=== PATIENT | male | born 1965 | race Caucasian/White ===

== ENCOUNTER → 2021-09-20 14:23 | Outpatient (BNVA) | payer OTHER, SELFPAY | PROVIDERS: PCP Internal Medicine; Referring Provider Internal Medicine; Visit Provider Internal Medicine Cardiovascular Disease | DX: I25.10 Atherosclerotic heart disease of native coronary artery without angina pectoris (principal); R07.89 Other chest pain; Z95.5 Presence of coronary angioplasty implant and graft; Z79.82 Long term (current) use of aspirin; Z79.899 Other long term (current) drug therapy | CPT/HCPCS: 93005 ==

== ENCOUNTER → 2021-09-26 07:14 | Outpatient (REF) | payer OTHER, SELFPAY ==
--- NOTE | ~2021-09-26 | NM_ITS ---
EXERCISE MYOCARDIAL PERFUSION STUDY INDICATION: Chest pain, coronary artery disease, assess for ischemia TECHNIQUE: The patient was brought in for an exercise perfusion study on 09/26/2021. Patient performed exercise as per Tod protocol and was injected 35 mCi of sestamibi once target heart rate was achieved. Images were obtained using the SPECT gamma camera interlaced with the gating device. Images were obtained in supine position. Resting perfusion study was performed on 09/27/2021. Patient was administered 35 mCi of sestamibi intravenously at rest. Images were then obtained in supine position. Images were processed with the software and compared side to side in short axis, horizontal long axis and vertical long axis views. FINDINGS: Raw images were reviewed. The stress perfusion study showed no significant perfusion abnormality. Both uncorrected as well as CT attenuation corrected images were reviewed. The gated study shows normal LV systolic function with calculated LVEF of 66%. LV cavity is normal in size. The gated study shows normal wall thickening and contraction of segments. Resting study shows no significant perfusion abnormality. Gating at rest reveals normal wall motion with ejection fraction at 64%. The findings are consistent with no reversible or fixed perfusion abnormality. [place] cardiolite stress test IMPRESSION: 1. Myocardial perfusion imaging study shows normal myocardial perfusion. No evidence of any ischemia or infarction. 2. Gated LVEF is 66% during stress and 64% during rest. 3. Transient ischemic dilatation not present. EKG component of the test reported separately.
--- NOTE | 2021-09-26 07:28 | CA_ITS ---
Acquisition Time: 2021-09-26 08:30:00 Total Exercise Time: 00:11:15 Test Indications: CP, SOB Medications: SEE CHART Protocol: MANUELITO Max HR: 146 BPM 89% of Pred: 163 BPM Max BP: 204/090 mmHG Max Work Load: 13.4 METS Exercise stress test with exercise 11 min 15 sec of Manuelito protocol, with report of 3/10 left chest pressure, with isolated PVCs and two ventricular cuplets, with BP 138/98 at baseline and up to 204/90 with exercise, with EKG abnormalities at baseline: downlsoping ST with T inversion lead III, aVF, V5-V6, without signficant EKG changes during exercise. Chest discomfort quickly resolved in recovery. BP improved to 150/88. Nuclear images pending. Test reviewed with Dr Jimenez Referred By: Anirudh Thornton Overread By: AMALIA ROMANO
--- NOTE | 2021-09-26 07:28 | CA_ITS ---
Transthoracic Echocardiogram Patient (Last, First, Middle): Ronan Amador M Gender: Male Date of : 1965 Age: 55 Procedure Date: 09/26/2021 Procedure Type: Transthoracic Echocardiogram Location: OP Height: 182.88 cm Weight: 102.06 kg BSA: 2.24 m2 Heart Rate: bpm BP: 148 / 84 mmHg Varnish Inspector: HORACIO Referring MD: Anirudh Thornton MD Compensation Expert: Anirudh Thornton MD Symptoms: I25.10 - Atherosclerotic heart disease of [place] coronary... Study Quality: Fair ECG Rhythm: Sinus Conclusions: - 1. Normal LV systolic function with underlying regional wall motion abnormality with impaired relaxation filling pattern 2. Mildly dilated left atrium 3. Normal cardiac valvular Doppler 4. Normal calculated RV systolic pressure 5. No gross pericardial effusion Findings Left Ventricle Normal left ventricular size and systolic function. There is mildly increased left ventricular wall thickness. The visually estimated ejection fraction is between 55-60%. Spectral Doppler is indicative of an impaired relaxation filling pattern. E/E prime ratio is between 8 and 15 consistent with indeterminate filling pressures. Wall Motion Rest Echo Findings The basal inferior and basal inferoseptal segments are hypokinetic. All other scored wall segments showed normal motion. Right Ventricle Normal right ventricular cavity size and systolic function. Atria The left atrium is mildly dilated. There is no evidence of interatrial shunt. The right atrium is normal in size. Aortic Valve There is mild calcification of the aortic valve. There is mild thickening of the aortic valve. There is no aortic valve stenosis. There is no aortic valve regurgitation. Mitral Valve There is mild anterior and posterior mitral leaflet thickening. There is trace mitral valve regurgitation. There is no mitral valve stenosis. Pulmonic Valve The pulmonic valve was not well visualized. Tricuspid Valve Likely normal tricuspid valve structure and function. There is trace tricuspid valve regurgitation. The right ventricular systolic pressure is normal. There is no evidence of pulmonary hypertension. Great Vessels All visible segments of the aorta are normal in size. The pulmonary artery was not well visualized. Venous The inferior vena cava is normal in size and collapses greater than 50% with inspiration. Pericardium/Pleural There is no evidence of pericardial effusion. Prior Study Comparison No prior study available for comparison. Measurements 2D Linear Measurements IVSd: 1.33 0.6-0.9/0.6-1.0 cm LVIDd: 4.35 3.9-5.3/4.2-5.9 cm LVIDd Index: 1.94 2.4-3.2/2.2-3.1 cm/m2 LVIDs: 2.69 2.0-3.6 cm LVPWd: 1.31 0.7-1.1 cm Ao Root: 3.40 2.1-3.5 cm LA Diam: 3.90 2.7-3.8/3.0-4.0 cm LAIDs Index: 1.74 1.5-2.3 cm/m2 LV Mass: 269.59 67-162/88-224 g LV Mass Index: 120.35 43-95/49-115 g/m2 LVOT Diam: 2.00 3.0+(-)1.3 cm 2D Systolic Function EF 4C: 60.80 >55% EF 2C: 60.10 >55% EF BiP: 59.70 >55% Mitral Valve MV Pk E: 0.66 MV PK A: 0.88 MV Decel Time: 237.00 E/A: 0.70 E'Lateral: 6.96 E'Medial: 5.66 E/E' Med: 11.60 E/E' Lat: 9.40 PHT: 69.00 MVA PHT: 3.19 Decel [place]: 2.77 Aortic Valve AoV Pk Lul: 1.62 AoV Mn Lul: 1.09 AoV VTI: 0.31 AoV Pk Grad: 10.00 Aov Mn Grad: 5.00 THIAGO Cont.VTI: 2.51 LVOT LVOT Pk Lul: 1.29 LVOT Mn Lul: 0.79 LVOT VTI: 0.25 LVOT Pk Grad: 7.00 LVOT Mn Grad: 3.00 LVOT Diam: 2.00 LVOT Area: 3.14 Diastolic Function MV Pk E: 0.66 MV Pk A: 0.88 E/A: 0.70 E'Medial: 5.66 E/E' Med: 11.60 E' Laterial: 6.96 E/E' Lat: 9.40 Right Ventricle TAPSE (mm): 19.30 TVS' Lul: 11.20 Tricuspid Valve TR Pk Lul: 1.25 TR Pk Grad: 6.00 RA Press: 3.00 RVSP: 9.00 Great Vessels Aorta Ao Root-2D: 3.40 2.0-3.7 cm Ao Asc: 3.60 2.1-3.4 cm Ao Arch: 3.10 Updated in Other Vendor System with Status of Final Anirudh Thornton MD electronically signed on 09/26/2021 1:34:53 PM with status of Final
== END ==
LOC: HO.CARD 07:14
PROVIDERS: PCP Internal Medicine; Visit Provider Internal Medicine Cardiovascular Disease
DX: R07.89 Other chest pain (principal); I25.10 Atherosclerotic heart disease of native coronary artery without angina pectoris
CPT/HCPCS: 78452; 93017; 93306; A9500; J0280; J2785

== ENCOUNTER 2023-09-01 14:43 | Outpatient (AMB) | payer OTHER, SELFPAY ==
--- NOTE | 2023-09-01 15:06 | A.OFFVIS_ITS ---
Intake Vital Signs 09/01/23 15:07 Height 6 ft Weight 235 lb 14.314 oz BMI 32.0 BP 120/70 Blood Pressure Location Lt brachial Position Sitting Pulse 67 Intake Visit Reasons: F/u Chest pain Intake Note: Follow-up with ekg still having chest pain nothing changed Cylinder Grinder Required: No Allergies [place]-HUS-XnQ Reductase Inhibitor Allergy (Verified 09/20/21 14:55) Muscle Pain Medication List - Last Reconciled 09/01/23 by Anirudh Thornton MD aspirin (Adult Low Dose Aspirin) 81 mg PO DAILY HPI HPI Comments History of Present Illness Details Ronan comes for follow-up. He said he continues to have precordial chest pain and left arm discomfort. He said this is with no clear exertional activity. 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 He is very frustrated overall. He said he has some chest discomfort today. EKG with chest discomfort is within normal limits with no evidence of ischemic changes. He says ever since stenting he has gone downhill. He says he has had reduced functional capacity with increasing fatigue and tiredness. He is lost weight. He also has had memory loss. 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 We have prescribed in [facility], however he does not recall ever being told about it. He is also currently off atenolol only currently taking aspirin therapy. His workup 2 years ago was within normal limits. [facility] Medical History Statin intolerance Hyperlipidemia CAD (coronary artery disease) Surgical History Stented coronary artery Family History Father CAD (coronary artery disease) Mother S/P AVR (aortic valve replacement) Social History Patient Tobacco Use Status: Never used Tobacco Review of Systems Const Denies chills, Denies fatigue, Denies fever(s), Denies frequent falls, Denies weakness, Denies weight gain and Denies weight loss ENT Denies dizziness Card Denies chest pain, Denies leg edema, Denies lightheadedness, Denies palpitations, Denies dyspnea, Denies dyspnea on exertion, Denies orthopnea and Denies other (loss of consciousness) Resp Denies cough, Denies dyspnea and Denies dyspnea on exertion GI Denies hematochezia and Denies change in stool character Musc Denies abnormal gait, Denies muscle weakness, Denies numbness, Denies radiating pain into limb and Denies tingling Neuro Denies Abnormal speech present, Denies abnormal gait, Denies dizziness, Denies frequent falls, Denies numbness, Denies tingling and Denies weakness Endo Denies fatigue and Denies palpitations Physical Exam Vital Signs: Last Vital Signs Pulse 67 09/01/23 15:07 BP 120/70 09/01/23 15:07 BMI result Body Mass Index 32.0 Const General: cooperative, comfortable, no acute distress, alert and awake Nutritional Appearance: obese Orientation/consciousness: patient oriented x3 Limitations: no limitations HEENT Head: Yes normocephalic and Yes atraumatic Neck Neck: Yes trachea midline, Yes supple and Yes no JVD Carotids: no bruits Resp Effort & Inspection: normal respiratory effort Auscultation: clear to auscultation bilaterally Cardio Jugular venous distension: no JVD Palpation: normal PMI Rate: regular rate Rhythm: regular rhythm Heart sounds: S1 normal heart sound present, S2 normal heart sound present, no click, no gallops, no murmurs and no rubs GI Auscultation: normal bowel sounds Skin General skin exam: no rashes or lesions noted Neuro General: patient oriented x3 and no focal motor deficits Speech: No Abnormal speech present Extrem General: Yes no clubbing, cyanosis or edema Office Procedures EKG Details: EKG shows normal sinus rhythm normal EKG 41662-[id number], Complete Assessment & Plan Assessment & Plan (1) Non-cardiac chest pain: Code(s): R07.89 - Other chest pain Plan: Patient continues to have intermittent episodes of chest discomfort which has no clear exertional pattern. Symptoms can sometimes be related to stress but also has symptoms today and with completely normal EKG. Workup with myocardial perfusion imaging within last 2 years which was within normal limits. I feel that his chest pain is not cardiac in origin and does not present myocardial ischemia. Most likely musculoskeletal chest pain or anxiety related chest pain. If the pattern of chest pain changes and happens consistently with exertion may consider cardiac catheterization at that point in time. (2) CAD (coronary artery disease): Code(s): I25.10 - Atherosclerotic heart disease of [place] coronary artery without angina pectoris Plan: Coronary artery disease with stenting of the OM2 branch with no improvement in his symptoms overall. Possible that his symptoms in the past were not related to myocardial ischemia. He is currently on aspirin therapy. 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 Discussed with him about al ternative such as PCSK9 inhibitor therapy which is the injectable therapy. He said he can not use needles. However he think about it once I said that it is once every 2 weeks. Importance of lipid modification to although the course of atherosclerosis was discussed with him in details. He showed understanding. However remains focused and frustrated with his other symptoms of fatigue and tiredness as well as memory loss. Advised to follow-up with your office for further management of these symptoms. Will follow up in the clinic in 1 year's time, sooner p.r.n.. Thank you for allowing me to partake in his care Coding Level of Care Code Est Pt Level 4 (24608) Diagnoses Non-cardiac chest pain R07.89 CAD (coronary artery disease) I25.10 CPT Codes EKG - CPT: 21825-[id number], Complete ([id number])
[2023-09-01 15:07] VITALS: BP 120/70; PULSE 67; BMI 32.0
== END 2023-09-01 15:50 | disposition home or self-care (01) ==
PROVIDERS: PCP Nurse Practitioner Family; Visit Provider Internal Medicine Cardiovascular Disease
DX: R07.89 Other chest pain (principal); I25.10 Atherosclerotic heart disease of native coronary artery without angina pectoris
CPT/HCPCS: 93010; 99214

== ENCOUNTER → 2023-09-01 14:43 | Outpatient (BNVA) | payer OTHER, SELFPAY | PROVIDERS: PCP Internal Medicine; Visit Provider Internal Medicine Cardiovascular Disease | DX: R07.89 Other chest pain (principal); I25.10 Atherosclerotic heart disease of native coronary artery without angina pectoris | CPT/HCPCS: 93005 ==

== ENCOUNTER → 2024-09-02 08:34 | Outpatient (BNVA) | payer OTHER, SELFPAY | PROVIDERS: PCP Nurse Practitioner Family; Visit Provider Internal Medicine Cardiovascular Disease | DX: R07.9 Chest pain, unspecified (principal); I25.10 Atherosclerotic heart disease of native coronary artery without angina pectoris; E78.5 Hyperlipidemia, unspecified | CPT/HCPCS: 93005 ==

== ENCOUNTER 2024-09-03 08:13 | Outpatient (REF) | payer OTHER, SELFPAY ==
[2024-09-03 09:00] LABS: Hematocrit 45.2 % (42.0-52.0); Hemoglobin 14.6 g/dl (14.0-18.0); Mean Corpuscular HGB Conc 32.3 g/dl (31.0-36.0); Mean Corpuscular Hemoglobin 29.6 pg (27.0-33.0); Mean Corpuscular Volume 91.7 fL (80.0-98.0); Mean Platelet Volume 10.3 fL (9.4-12.4); Platelet Count 194 X10*3/uL (160-400); Red Blood Count 4.93 X10*6/uL (4.60-5.80); Red Cell Distribution Width 13.4 % (11.0-16.0); White Blood Count 5.4 X10*3/uL (4.8-10.8)
[2024-09-03 09:28] LABS: Alanine Aminotransferase 27 U/L (0-40); Albumin Level 4.1 g/dL (3.5-5.0); Alkaline Phosphatase 51 U/L (39-117); Anion Gap 11 (12-20); Aspartate Amino Transferase 30 U/L (5-37); Bilirubin Direct 0.2 mg/dL (0.0-0.5); Bilirubin Total 0.5 mg/dL (0.0-1.0); Blood Urea Nitrogen 20 mg/dL (9-16); Calcium 9.8 mg/dL (8.4-10.2); Carbon Dioxide 28 mmol/L (22-29); Chloride 109 mmol/L (96-108); Cholesterol 191 mg/dL (<200); Estimated Glomerular Filt Rate > 60; Glucose Random 96 mg/dL (60-115); HDL Cholesterol 46 mg/dL (>40); LDL Cholesterol Calculated 133 mg/dL (<100); Potassium 4.5 mmol/L (3.3-5.1); Sodium 143 mmol/L (135-145); Total Protein 7.2 g/dL (6.5-8.0); Triglycerides 61 mg/dL (<150)
[2024-09-03 09:45] LABS: TSH reflex Free T4 1.23 uIU/mL (0.32-4.0)
[2024-09-06 06:48] LABS: CRP High Sensitivity 0.8 mg/L
[2024-09-09 13:28] LABS: Lipoprotein A 11 nmol/L (<75)
[2024-09-10 04:48] LABS: Apolipoprotein B 98 mg/dL (<90)
== END 2024-09-03 08:14 | disposition home or self-care (01) ==
LOC: HO.LAB 08:13
PROVIDERS: PCP Nurse Practitioner Family; Visit Provider Internal Medicine Cardiovascular Disease
DX: I25.10 Atherosclerotic heart disease of native coronary artery without angina pectoris (principal); E78.5 Hyperlipidemia, unspecified
CPT/HCPCS: 36415; 80048; 80061; 80076; 82172; 83695; 84443; 85027; 86141

== ENCOUNTER → 2024-09-21 07:54 | Outpatient (REF) | payer OTHER, SELFPAY ==
--- NOTE | 2024-09-21 07:56 | CA_ITS ---
Transthoracic Echocardiogram Patient (Last, First, Middle): Ronan Amador M Gender: Male Date of : 1965 Age: 58 Procedure Date: 09/21/2024 Procedure Type: Transthoracic Echocardiogram Location: OP Height: 182. cm Weight: 98.43 kg BSA: 2.20 m2 Heart Rate: 59 bpm BP: 165 / 85 mmHg Paper Rewinder: WESLEY Referring MD: Anirudh Thornton MD Symptoms: R07.9 - Chest pain, unspecified Study Quality: Fair ECG Rhythm: Sinus Conclusions: - The left ventricular systolic function is normal. The calculated ejection fraction is 65% by biplane method. - There is moderate septal asymmetric hypertrophy. - There is moderate calcification of the aortic valve. Findings Left Ventricle Normal left ventricular cavity size. The left ventricular systolic function is normal. The calculated ejection fraction is 65% by biplane method. There is no evidence of regional wall motion abnormalities. Diastolic function is normal for age. There is moderate septal asymmetric hypertrophy. Right Ventricle Mildly increased right ventricular cavity size. There is normal right ventricular systolic function. Atria Both atria are normal in size. Aortic Valve There is moderate calcification of the aortic valve. There is no aortic valve stenosis. There is no aortic valve regurgitation. Mitral Valve The mitral valve appears normal. There is no mitral valve regurgitation. There is no mitral valve stenosis. Pulmonic Valve The pulmonic valve is likely normal. Tricuspid Valve There is trace tricuspid valve regurgitation. There is no evidence of pulmonary hypertension. Great Vessels The asc aorta and aortic arch are normal in size. Venous The inferior vena cava was not well visualized. The inferior vena cava is normal in size. Pericardium/Pleural There is no evidence of pericardial effusion. Prior Study Comparison Changes noted compared to prior study dated: 09/26/2021. No clear evidence of wall motion abnormality. Measurements 2D Linear Measurements IVSd: 1.27 0.6-0.9/0.6-1.0 cm LVIDd: 4.39 3.9-5.3/4.2-5.9 cm LVIDd Index: 2.00 2.4-3.2/2.2-3.1 cm/m2 LVIDs: 2.57 2.0-3.6 cm LVPWd: 0.95 0.7-1.1 cm LA Diam: 4.40 2.7-3.8/3.0-4.0 cm LAIDs Index: 2.00 1.5-2.3 cm/m2 LV Mass: 212.23 67-162/88-224 g LV Mass Index: 96.47 43-95/49-115 g/m2 LVOT Diam: 2.30 3.0+(-)1.3 cm 2D Systolic Function EF 4C: 66.40 >55% EF 2C: 59.80 >55% EF BiP: 65.20 >55% Mitral Valve MV Pk E: 0.69 MV PK A: 0.76 MV Decel Time: 335.00 E/A: 0.90 E'Lateral: 7.51 E'Medial: 4.79 E/E' Med: 14.40 E/E' Lat: 9.20 PHT: 98.00 MVA PHT: 2.24 Decel [place]: 2.06 Aortic Valve AoV Pk Lul: 1.85 AoV Mn Lul: 1.34 AoV VTI: 0.41 AoV Pk Grad: 14.00 Aov Mn Grad: 8.00 THIAGO Cont.VTI: 2.65 LVOT LVOT Pk Lul: 1.20 LVOT Mn Lul: 0.80 LVOT VTI: 0.26 LVOT Pk Grad: 6.00 LVOT Mn Grad: 3.00 LVOT Diam: 2.30 LVOT Area: 4.15 Diastolic Function MV Pk E: 0.69 MV Pk A: 0.76 E/A: 0.90 E'Medial: 4.79 E/E' Med: 14.40 E' Laterial: 7.51 E/E' Lat: 9.20 Right Ventricle TAPSE (mm): 22.80 TVS' Lul: 12.10 Great Vessels Aorta Sinus of Valsalva: 3.50 2.0-3.5 cm Ao Asc: 3.60 2.1-3.4 cm Ao Arch: 3.20 Pulmonary Valve PV Pk Lul: 1.38 Peak PV Grad: 8.00 Updated in Other Vendor System with Status of Final Lloyd Tineo MD electronically signed on 09/21/2024 11:19:58 AM with status of Final
== END ==
LOC: HO.CARD 07:54
PROVIDERS: PCP Nurse Practitioner Family; Visit Provider Internal Medicine Cardiovascular Disease
DX: R07.9 Chest pain, unspecified (principal)
CPT/HCPCS: 93306

== ENCOUNTER → 2024-09-21 07:56 | Outpatient (BNV) | payer OTHER, SELFPAY | PROVIDERS: PCP Nurse Practitioner Family; Visit Provider Internal Medicine | DX: I35.8 Other nonrheumatic aortic valve disorders (principal); I42.2 Other hypertrophic cardiomyopathy | CPT/HCPCS: 93306 ==

== ENCOUNTER → 2024-10-20 09:48 | Outpatient (REF) | payer OTHER, SELFPAY ==
--- NOTE | ~2024-10-20 | NM_ITS ---
EXERCISE MYOCARDIAL PERFUSION STUDY INDICATION: Chest pain to evaluate for myocardial ischemia TECHNIQUE: The patient was brought in for an exercise perfusion study on 10/20/2024. Patient performed exercise as per Tod protocol and was injected 30 mCi of sestamibi once target heart rate was achieved. Images were obtained using the SPECT gamma camera interlaced with the gating device. Images were obtained in supine position. Resting perfusion study was performed on 10/21/2024. Patient was administered 30 mCi of sestamibi intravenously at rest. Images were then obtained in supine position. Images obtained without without CT attenuation. Total DLP 88 mGy-cm. Images were processed with the software and compared side to side in short axis, horizontal long axis and vertical long axis views. FINDINGS: Raw images were reviewed The stress perfusion study showed nonattenuated images show mildly reduced uptake in the basal and mid inferior wall of the LV myocardium. There is also mildly reduced uptake in the basal inferolateral wall of the LV myocardium. Attenuated corrected images show mildly reduced uptake in a small area of focal apical inferior as well as the apical inferolateral wall of the LV myocardium.. The gated study shows normal LV systolic function with calculated LVEF of 72%. LV cavity is normal in size. The gated study shows normal systolic wall thickening and contraction of segments. Resting study shows nonattenuated images show mildly reduced uptake in the basal inferior, basal inferolateral and mid inferior wall of the LV myocardium, unchanged from stress perfusion study on attenuated corrected images show improved uptake in the focal area of inferolateral apical as well as apical inferolateral wall of the LV myocardium.. Gating at rest reveals normal systolic wall motion with ejection fraction at 66%. The findings are consistent with reversible defect in the small area of mild intensity focal inferoapical and apical inferolateral wall ischemia. NM/NM cardiolite stress test IMPRESSION: 1. Myocardial perfusion imaging study shows small area of mild intensity inferoapical and apical inferolateral wall ischemia. 2. Gated LVEF is 72%. 3. Transient ischemic dilatation not present. EKG revealed negative for ischemia. Electronically signed by: Anirudh Thornton MD 10/21/2024 04:02 PM EDT
--- NOTE | 2024-10-20 09:50 | CA_ITS ---
Acquisition Time: 2024-10-20 10:01:07 Total Exercise Time: 00:10:35 Test Indications: CP, ABN EKG Medications: SEE H&P Protocol: TOD Max HR: 134 BPM 83% of Pred: 160 BPM Max BP: 204/88 mmHG Max Work Load: 12.7 METS Exercise Stress Test with exercise 10 mins 35 secs of Tod Protocol, achieving 84% MPHR, with reports of 3/10 left sided sharp chest pain upto the shoulder, with SOB, with isolated PVCs, with normotesnive response- baseline BP 142/90 that janay up to 204/88. Without EKG changes meeting criteria for ischemia. CP resolved quickly in recovery and breathing returned to baseline. Nuclear images pending. Test reviewed with Dr. Thornton. Referred By: Anirudh Thornton Electronically Signed By: Michael Palacios
== END ==
LOC: HO.CARD 09:48
PROVIDERS: PCP Nurse Practitioner Family; Visit Provider Internal Medicine Cardiovascular Disease
DX: R07.9 Chest pain, unspecified (principal)
CPT/HCPCS: 78452; 93017; A9500; J0280; J2785

== ENCOUNTER → 2024-10-20 09:50 | Outpatient (BNV) | payer OTHER, SELFPAY | PROVIDERS: PCP Nurse Practitioner Family | DX: R07.2 Precordial pain (principal); R06.02 Shortness of breath; I49.3 Ventricular premature depolarization | CPT/HCPCS: 78452; 93016; 93018 ==

== ENCOUNTER 2025-07-19 13:42 | Outpatient (AMB) | payer OTHER, SELFPAY ==
[2025-07-19 13:46] VITALS: BP 128/82; PULSE 76; BMI 29.8
--- NOTE | 2025-07-19 13:46 | A.OFFVIS_ITS ---
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 He has a history of coronary artery disease with stenting of the OM2 branch in 2017 and has experienced intermittent episodes of chest pain since the procedure, which has become more frequent and sharper recently. The pain is now occurring almost daily, is located on the left side, and at times moves from the chest to the hand and left neck, and can be triggered by stress. Associated symptoms include worsening shortness of breath with exertion, such as climbing stairs, and a new onset of balance issues, where he feels like he is falling sideways. He also reports significant fatigue. Prior cardiac testing includes an exercise stress test on 10/20/2024, which show ed no EKG changes but reproduced his sharp left chest pain, with nuclear imaging revealing a small area of mild inferior apical and apical inferolateral ischemia. Following that test he was to start on metoprolol which he did not do. An echocardiogram from 09/21/2024 showed an ejection fraction of 65%, moderate septal asymmetric hypertrophy, and moderate aortic valve calcification. His medical history is notable for hyperlipidemia with statin intolerance due to muscle damage, and he has refused injectable cholesterol medications. 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 [facility] Medical History (Updated 07/19/25 @ 16:59 by LIDIA Nielsen) Statin intolerance Hyperlipidemia CAD (coronary artery disease) Surgical History Stented coronary artery Family History Father CAD (coronary artery disease) Mother S/P AVR (aortic valve replacement) Social History Patient Tobacco Use Status: Never used Tobacco Review of Systems Const All systems reviewed & are unremarkable except as noted in HPI and below Reports fatigue ENT Denies dizziness Card Reports chest pain, Reports chest pain at rest, Reports chest pain with activity, Denies rapid heart rate, Denies pedal edema, Denies edema, Denies leg edema, Denies lightheadedness, Denies palpitations, Denies dyspnea and Reports dyspnea on exertion Resp Denies cough, Denies dyspnea and Reports dyspnea on exertion GI Denies hematochezia and Denies change in stool character Musc Denies abnormal gait, Denies limited range of motion, Denies muscle cramps, Denies muscle weakness, Denies numbness, Denies radiating pain into limb, Denies stiffness and Denies tingling Neuro Denies abnormal gait, Denies dizziness, Denies numbness and Denies tingling Endo Reports fatigue and Denies palpitations Physical Exam Vital Signs: Last Vital Signs Pulse 76 07/19/25 13:46 BP 128/82 07/19/25 13:46 BMI result Body Mass Index 29.8 Const General: cooperative, healthy appearing, comfortable and no acute distress Orientation/consciousness: patient oriented x3 Neck Neck: Yes normal visual inspection Resp Effort & Inspection: normal respiratory effort Auscultation: clear to auscultation bilaterally, no crackles, no rales, no rhonchi and no wheezes Cardio Rate: regular rate Rhythm: regular rhythm Heart sounds: S1 normal heart sound present, S2 normal heart sound present, no gallops, no murmurs and no rubs Neuro General: patient oriented x3 Extrem General: Yes normal to inspection and No no pedal edema Psych Appearance: grossly normal Mental Status: mental status grossly normal Speech and movement: Normal speech and movement present Office Procedures EKG Details: Today, read by me, sinus rhythm, no acute ST or T-wave abnormalities, rate 76, QTC 418 milliseconds [id number], Complete Assessment & Plan Assessment & Plan (1) Chest pain: Code(s): R07.9 - Chest pain, unspecified Category: Medical Plan: Reports of chest discomfort with typical and atypical features. His symptom has been occurring for years but recent increase in frequency, severity and now with shortness of breath on exertion. Nuclear stress test done last spring with small area of mild intensity inferior apical and apical inferior lateral ischemia. He was instructed to start on metoprolol following that result and he said he never picked it up from the pharmacy. EKG today showing normal sinus rhythm, no ischemic findings, rate 76. Discussed coronary artery disease and the need for further evaluation with cardiac catheterization. He is reluctant at this time. We agreed on having him start the metoprolol XL 25 mg daily to see if that improves his symptoms. I will call him in 2 weeks for re- evaluation. Signs and symptoms of angina reviewed. Cardiology office visit in 3 months, sooner if needed. (2) CAD (coronary artery disease): Code(s): I25.10 - Atherosclerotic heart disease of [place] coronary artery without angina pectoris Category: Medical Plan: History of CAD with stent in the OM2 branch 2017. Reports of chest discomfort as described above. May need repeat catheterization in the near future. (3) Stented coronary artery: Comment: OM 2 stenting, June 2017 for ongoing angina with a drug-eluting stent Code(s): Z95.5 - Presence of coronary angioplasty implant and graft Category: Surgical Plan: As above (4) Hyperlipidemia: Code(s): E78.5 - Hyperlipidemia, unspecified Category: Medical Plan: [place] LDL goal less than 70. Uncontrolled. Labs 09/03/2024 showed LDL 133. Intolerant to statins. Declines PCSK9 inhibitor. Not interested in Zetia. Benefits a weight loss and diet control reviewed (5) Statin intolerance: Comment: Multiple statins including atorvastatin, pravastatin and rosuvastatin Code(s): Z78.9 - Other specified health status Category: Medical Plan: As above Plan I discussed with the patient that his increasing chest discomfort and shortness of breath, in conjunction with his mildly abnormal stress test, are concerning. I explained that a cardiac catheterization is the only definitive way to determine if his symptoms are from coronary artery blockages, to evaluate his prior stent, and to see if a new stent is needed. I also noted that if the catheterization shows clear arteries, his pain is likely non-cardiac. We jointly decided to first start a trial of metoprolol to see if it improves his symptoms. I informed him that I will review his prior catheterization report from 2017. I described the catheterization as a one-day procedure via the wrist, requiring a few days of being careful with the wrist afterward. I Will plan to call him in two weeks to assess his response to the medication, and we will decide on proceeding with the catheterization during a follow-up phone call. Medications: Refilled metoprolol succinate ER 25 mg PO DAILY 30 tabs 3RF Patient Instructions: - Begin taking metoprolol as prescribed to help with your chest pain and shortness of breath. - Continue taking your daily aspirin. - Expect a phone call in about two weeks to check on your symptoms after starting metoprolol. - We will talk again by phone after that to decide if a cardiac catheterization (a procedure to look at your heart arteries) is the next step. - We will schedule your next office visit for three months from now, but you should call us sooner if your symptoms get worse. Patient was informed and verbally consented to the use of an ambient scribe for clinic note documentation during this visit. Visit time spent on chart review, interview, assessment, orders, documentation. Coding Level of Care Code Est Pt Level 4 (88207) Add On Problem Visit Only Diagnoses Chest pain R07.9 CAD (coronary artery disease) I25.10 Stented coronary artery Z95.5 Hyperlipidemia E78.5 Statin intolerance Z78.9 CPT Codes EKG - CPT: 70274-[id number], Complete ([id number]) Time Spent (min) 35
== END 2025-07-19 14:26 | disposition home or self-care (01) ==
LOC: HO.HCS 13:43
PROVIDERS: PCP Nurse Practitioner Family; Visit Provider Nurse Practitioner Family
DX: R07.9 Chest pain, unspecified (principal); I25.10 Atherosclerotic heart disease of native coronary artery without angina pectoris; Z95.5 Presence of coronary angioplasty implant and graft; E78.5 Hyperlipidemia, unspecified; Z78.9 Other specified health status
CPT/HCPCS: 93010; 99214

== ENCOUNTER → 2025-07-19 13:42 | Outpatient (BNVA) | payer OTHER, SELFPAY | PROVIDERS: PCP Nurse Practitioner Family; Visit Provider Nurse Practitioner Family | DX: R07.9 Chest pain, unspecified (principal); I25.10 Atherosclerotic heart disease of native coronary artery without angina pectoris; I10 Essential (primary) hypertension; E78.5 Hyperlipidemia, unspecified; Z95.5 Presence of coronary angioplasty implant and graft; Z78.9 Other specified health status | CPT/HCPCS: 93005 ==